=== PATIENT | female | born 1960 | race Caucasian/White ===

== ENCOUNTER → 2018-07-06 | Outpatient (CLI) | payer OTHER, MEDICAID ==
[2018-07-06 19:07] LABS: BASO % 0.5 % (0.0-1.0); EOS # 0.1 10^3/uL (0.0-0.50); EOS % 0.9 % (0.0-3.0); HEMATOCRIT 40.6 % (36.0-47.0); IMMATURE GRANULOCYTE % 0.2 % (0-3.0); LYMPH % 35.5 % (24.0-44.0); MEAN CORPUSCULAR HEMOGLOBIN 27.8 pg (27.0-33.0); MEAN CORPUSCULAR VOLUME 86.8 fl (80.0-96.0); MONO # 0.6 10^3/uL (0.0-0.8); MONO % 10.6 % (0.0-5.0); NEUTROPHILS % 52.3 % (36.0-66.0); PLATELET COUNT, AUTOMATED 327 10^3/uL (150-450); RED BLOOD COUNT 4.68 10^6/uL (4.00-5.40); RED CELL DISTRIBUTION WIDTH 14.8 % (11.5-14.5); WHITE BLOOD COUNT 5.8 10^3/uL (4.0-10.0)
[2018-07-06 19:18] LABS: INR 0.92; PROTHROMBIN TIME 12.5 SECONDS (12.1-14.4)
[2018-07-06 19:19] LABS: PARTIAL THROMBOPLASTIN TIME 29.6 SECONDS (25.4-37.6)
[2018-07-06 19:24] LABS: ALBUMIN/GLOBULIN RATIO 1.21 (1.00-1.93); ALKALINE PHOSPHATASE 223 U/L (45-117); ALT/SGPT 45 U/L (12-78); ANION GAP 8 MEQ/L (8-16); AST/SGOT 46 U/L (7-37); BILIRUBIN,TOTAL 0.4 MG/DL (0.2-1.0); BLOOD UREA NITROGEN 12 MG/DL (7-18); CALCIUM LEVEL 9.2 MG/DL (8.5-10.1); CARBON DIOXIDE LEVEL 26 MEQ/L (21-32); CHLORIDE LEVEL 105 MEQ/L (98-107); CREATININE FOR GFR 0.55 MG/DL (0.55-1.30); GLOMERULAR FILTRATION RATE > 60.0 (>51); GLUCOSE, FASTING 113 MG/DL (70-100); POTASSIUM SERUM 4.1 MEQ/L (3.5-5.1); RHEUMATOID FACTOR QUANT < 10.0 IU/ML (<15.0); SODIUM LEVEL 139 MEQ/L (136-145); TOTAL PROTEIN 7.3 GM/DL (6.4-8.2)
[2018-07-11 10:13] LABS: ANCA-ATYPICAL <1:20 titer (Neg:<1:20); ASPERGILLUS FUMIGATUS AB Negative (Negative); AUREOBASIDIUM PULLULANS Negative (Negative); CYTOPLASMIC NEUTROP AB ANCA-C <1:20 titer (Neg:<1:20); MICROPOLYSPORA FAENI AB Negative (Negative); PERINUCLEAR AB ANCA-P <1:20 titer (Neg:<1:20); PIGEON SERUM AB Negative (Negative); THERMOACTINOMYCES SACCHARI Negative (Negative); THERMOACTINOMYCES VULGARIS Negative (Negative)
[2018-07-12 14:15] LABS: ASPERGILLUS GALACTOMANNAN AG 0.03 Index (0.00-0.49); QUANTIFERON GOLD TB Negative (Negative); TB Test (QFT) Antigen 0.71 IU/mL (.); TB Test (QFT) Mitogen 6.02 IU/mL (.); TB Test (QFT) Nil 0.51 IU/mL (.)
== END ==
LOC: M SMT 10:29
DX: R91.8 Other nonspecific abnormal finding of lung field (principal)
CPT/HCPCS: 80053

== ENCOUNTER 2018-07-16 07:23 | Day surgery (SDC) | payer MEDICARE, MEDICAID ==
[~2018-07-16 07:23] MED LIST: LIDOCAINE 1% MDV 20ML VIAL SQ
[2018-07-16] MEDS: LR 1,000 ML IV (07:45)
[2018-07-16] MEDS ORDERED: EPINEPHrine 1MG/10ML SYRINGE 1.5IN As Ordered (08:55)
[2018-07-16] MEDS ORDERED: LIDOCAINE VISCOUS 2% SOLN 15ML UDC As Ordered (08:55)
[2018-07-16] MEDS ORDERED: THROMBIN SOLN 5,000 UNITS VIAL As Ordered (08:55)
[2018-07-16] MEDS ORDERED: LIDOCAINE 1% SDV INJ 30 ML VIAL As Ordered (08:55)
[2018-07-16] MEDS ORDERED: MIDAZOLAM INJ 2 MG/2 ML VIAL (J2250) As Ordered (08:57)
[2018-07-16] MEDS ORDERED: LIDOCAINE 2% INJ 100 MG/5 ML SYRINGE As Ordered ×2 (08:58→09:00)
[2018-07-16] MEDS ORDERED: PROPOFOL 200 MG/20 ML VIAL As Ordered (08:58)
[2018-07-16] MEDS ORDERED: ROCURONIUM BROMIDE 50 MG/5 ML VIAL As Ordered (08:58)
[2018-07-16] MEDS ORDERED: fentaNYL 100 MCG/2 ML INJECTION (J3010) As Ordered ×2 (08:58→09:36)
[2018-07-16] MEDS: CETACAINE SPRAY 5GM As Ordered (09:35)
[2018-07-16] MEDS ORDERED: ONDANSETRON 4MG/2ML VIAL (J2405) As Ordered (09:42)
[2018-07-16] MEDS ORDERED: dexameTHASONE 4 MG/ML 1ML VIAL (J1100) As Ordered (09:42)
[2018-07-16] MEDS ORDERED: ESMOLOL INJ 100MG/10ML VIAL As Ordered (10:24)
[2018-07-16] MEDS ORDERED: GLYCOPYRROLATE INJ 0.2 MG/ML 2 ML VIAL As Ordered (10:26)
[2018-07-16] MEDS ORDERED: NEOSTIGMINE 10 MG/10 ML VIAL (J2710) As Ordered (10:26)
[2018-07-16] MEDS ORDERED: PERCOCET 5MG/325MG TAB PO (11:00)
[2018-07-16] MEDS ORDERED: LR 1,000 ML IV (11:00)
[2018-07-16] MEDS ORDERED: HYDROMORPHONE HCL 0.5 MG/ 0.5 ML SYRINGE (J1170 PER 1) IV (11:00)
[2018-07-16] MEDS ORDERED: ONDANSETRON 4MG/2ML VIAL (J2405) IV (11:00)
[2018-07-16] MEDS ORDERED: fentaNYL 100 MCG/2 ML INJECTION (J3010) IV (11:00)
[2018-07-16 11:18] LABS: APPEARANCE TURBID (CLEAR); COLOR COLORLESS (COLORLESS); SOURCE LEFT LOWER LOBE
[2018-07-16 11:21] LABS: BAL DIFF IF INDICATED? YES (NO); BAL WBC 119.988 CELLS/uL (0-10); DILUTION FACTOR 9; WBC BAL COUNTED 12
[2018-07-16 11:22] LABS: APPEARANCE TURBID (CLEAR); BAL WBC 89.991 CELLS/uL (0-10); COLOR COLORLESS (COLORLESS); DILUTION FACTOR 9; SOURCE RIGHT LOWER LOBE; WBC BAL COUNTED 9
[2018-07-16 11:23] LABS: BAL DIFF IF INDICATED? YES (NO)
[2018-07-16 12:24] LABS: MONOCYTES/MACROPHAGES, BAL 8 %
[2018-07-16 12:26] LABS: MONOCYTES/MACROPHAGES, BAL 5 %
[2018-07-16 14:19] LABS: CC BAL DIFF EXAM CYTOCENTRIFUGE
== END 2018-07-16 12:15 | disposition home or self-care (01) ==
LOC: M SDC 07:23
DX: R59.0 Localized enlarged lymph nodes (principal); R91.8 Other nonspecific abnormal finding of lung field; I10 Essential (primary) hypertension; R00.0 Tachycardia, unspecified; E78.5 Hyperlipidemia, unspecified; M19.90 Unspecified osteoarthritis, unspecified site; K21.9 Gastro-esophageal reflux disease without esophagitis; G43.909 Migraine, unspecified, not intractable, without status migrainosus; M54.9 Dorsalgia, unspecified; Z88.0 Allergy status to penicillin; Z88.1 Allergy status to other antibiotic agents; Z88.5 Allergy status to narcotic agent; Z79.899 Other long term (current) drug therapy; Z79.82 Long term (current) use of aspirin; Z85.3 Personal history of malignant neoplasm of breast; Z92.3 Personal history of irradiation; Z90.710 Acquired absence of both cervix and uterus; Z87.891 Personal history of nicotine dependence
CPT/HCPCS: 31624

== ENCOUNTER → 2018-07-31 | Outpatient (CLI) | payer MEDICARE, MEDICAID | LOC: M PLARAD 13:19 | DX: C78.01 Secondary malignant neoplasm of right lung (principal); C78.02 Secondary malignant neoplasm of left lung | CPT/HCPCS: 78815 ==

== ENCOUNTER → 2018-08-13 | Outpatient (CLI) | payer MEDICARE, MEDICAID ==
[~2018-08-13] MED LIST changes: -LIDOCAINE 1% MDV 20ML VIAL SQ; +PROHANCE 279.3MG/ML 15ML VIAL (A9576) As Ordered
== END ==
LOC: M RAD 17:09
DX: R51 Headache (principal); R47.9 Unspecified speech disturbances; E05.90 Thyrotoxicosis, unspecified without thyrotoxic crisis or storm; Z85.3 Personal history of malignant neoplasm of breast
CPT/HCPCS: A9576

== ENCOUNTER → 2018-08-17 | Outpatient (CLI) | payer MEDICARE, MEDICAID | LOC: M RAD 08:08 | DX: R22.42 Localized swelling, mass and lump, left lower limb (principal) | CPT/HCPCS: 93971 ==

== ENCOUNTER → 2018-11-13 | Outpatient (CLI) | payer MEDICARE, MEDICAID ==
[~2018-11-13] MED LIST changes: +ASPI81TA21 PO; +ATOR1TAB21 PO; +CALC600T60 PO; +CLON-412 PO; +COLA100C5 PO; +CYCL10TA PO; +GABA800T4 PO; +HYDR-4514 PO; +HYDR50TA70 PO; +IBRA125C PO; +LETR2.5T2 PO; +LORA-243 PO; +MIRT45TA4 PO; +NEXI20CA PO; -PROHANCE 279.3MG/ML 15ML VIAL (A9576) As Ordered; +SUMA100T2 PO; +TOPA50TA8 PO; +VALA1TAB2 PO; +VITA200048 PO; +XANA0.5T PO
--- NOTE | 2018-11-13 20:34 | REP ---
Whole body PET CT scan for breast cancer restaging: Comparison is the PET scan dated 07/31/2018. Whole-body scanning is performed from skull base to the upper thighs. Neck: There is borderline hypermetabolic uptake in the right supraclavicular node with a maximal standard uptake value today of 3.5. The maximal standard uptake value previously was 9.2. There are no other hypermetabolic foci. There is artifactual uptake in the parotid glands. Chest: The multiple lung nodules identified on the CT accompanying the prior PET scan are no longer identified except for a single persisting nodule in the medial basilar segment of the right lower lobe posterior sulcus, unchanged in size. There is non hypermetabolic uptake in this nodule with a standard uptake value of 1.8. Previously the standard uptake value in this nodule was 2.9. There is hypermetabolic uptake in an anterior mediastinal node with a standard uptake value of 10.3. Previously the uptake was 16.9. There is hypermetabolic uptake in the precarinal mediastinal node with a standard uptake value of 10.2, previously 16.8. There is hypermetabolic uptake in a subcarinal node with a standard uptake value of 9.6, previously 8.8. There is minimal hypermetabolic uptake in a left hilar node l node with a standard uptake value of 2.9, previously 2.7. There is minimal hypermetabolic uptake in a right hilar node with a standard uptake value of 2.7, previously 5.6. Abdomen, pelvis and upper thighs: There are no hypermetabolic foci. This is unchanged. Impression: There is a single persisting lung nodule in the deep posterior sulcus of the right lower lobe with non hypermetabolic uptake. The other lung nodules identified on the previous study are no longer identified on the study today. The uptake noted previously in the left nodes in the right supraclavicular area, mediastinum, and right and left pennie. In general have decreased in value. Uptake in a subcarinal node today is slightly greater than previously. The study is performed with 7.95 mCi of F 18 FDG. Electronically Signed by Kashif Sexton MD 11/13/2018 08:26 P
== END ==
LOC: M PLARAD 08:58
PROVIDERS: ATTEND Internal Medicine Hematology & Oncology
DX: C50.912 Malignant neoplasm of unspecified site of left female breast (principal); C78.01 Secondary malignant neoplasm of right lung
CPT/HCPCS: 78815; A9552

== ENCOUNTER → 2019-04-02 | Outpatient (CLI) | payer MEDICARE, MEDICAID ==
[~2019-04-02] MED LIST changes: +GASTROGRAFIN SOLUTION 30ML (Q9963) As Ordered ONE; +IBRA100C PO; +ISOVUE-370 76% 100ML VIAL (Q9967) As Ordered ONE; -VALA1TAB2 PO; +VALA1TAB64 PO
--- NOTE | 2019-04-02 19:49 | REP ---
REASON FOR EXAM: HISTORY OF BREAST CARCINOMA: There are no priors for comparison. CT scan obtained as part of a PET CT is not an exact comparison to today's standard contrast enhanced abdominal and pelvic CT performed not only after the administration of intravenous contrast but performed after the administration of oral bowel preparatory contrast as well. Those images, however, were reviewed. The patient is status-post cholecystectomy. There is mild intrahepatic ductal dilatation likely secondary to postcholecystectomy state. The patient is status-post splenectomy. There are multiple splenules status quo. The pancreas, adrenal glands and kidneys are within normal limits. The abdominal aorta and paraaortic regions are within normal limits. The bowel loops and their mesenteries are within normal limits. There is no free fluid or free air. There is no intraabdominal mass or adenopathy. CT PELVIS: The bowel loops and their mesenteries are within normal limits. There is no free fluid or free air. There is no mass or adenopathy. Bone window technique throughout the exam shows the osseous structures to be within normal limits. Multiple old healed left sided rib fractures are noted. These are unchanged compared to the prior CT. IMPRESSION:There is no evidence of acute intraabdominal or intrapelvic disease. CT findings as described above. Electronically Signed by Augustin Cornejo DO 04/03/2019 03:36 P
--- NOTE | 2019-04-03 07:16 | REP ---
REASON: History of breast carcinoma. COMPARISON: 06/28/[address] obtained at an outside institution. The CT component of the PET/CT obtained on 11/13/2018 was also reviewed. CONTRAST: 100 mL Isovue 370. The prior outside CT of 06/28/2018 was a low dose screening CT examination of the lungs. There are no contrast enhanced chest CTs for comparison. There is mediastinal adenopathy having a similar appearance compared to the prior CT scans. There is mild right hilar adenopathy. This cannot be compared with the prior exams since they are without intravenous contrast. The largest node has a short axis dimension of 1.2 cm. There are no pleural or pericardial effusions. The imaged osseous structures are within normal limits. Old healed left-sided rib fractures are noted status quo. Evaluation of the lung fuller show two ground-glass nodules. One in the inferior right upper lobe abutting the fissure to the right middle lobe and measuring 1 cm with a 6 mm solid nodular component associated with this. The other just superior to the aforementioned in the right upper lobe having an overall measurement of 1.3 cm and a 6 mm sized solid nodular component. These are difficult to compare to the prior exams due to the protocol utilized in obtaining those prior exams. Overall, I would say they are stable compared to the 11/13/2018 exam but are new compared to the 06/28/2018 exam. In the right lower lobe medial basilar segment, there is a pleural-based density which measures 1.7 cm. This is unchanged when compared to both prior exams. Small cavitary nodules seen previously in the left lower lobe are stable. There are numerable tiny 2 and 3 mm sized nodules, all of which have decreased in size compared to 06/28/2018 but probably stable from 11/13/2018, although difficult for an exact comparison. No definite new abnormal nodules, masses, or opacities have developed. IMPRESSION: 1. Essentially unchanged adenopathy as described above. 2. Improved or stable lung fuller findings with limitations as described above. Continued surveillance is recommended. Electronically Signed by Augustin Cornejo DO 04/03/2019 03:36 P
== END ==
LOC: M RAD 15:19
PROVIDERS: ATTEND Internal Medicine Hematology & Oncology
DX: C50.919 Malignant neoplasm of unspecified site of unspecified female breast (principal); R91.8 Other nonspecific abnormal finding of lung field; R59.0 Localized enlarged lymph nodes
CPT/HCPCS: 71260; 74177; Q9963; Q9967

== ENCOUNTER → 2019-07-08 | Outpatient (CLI) | payer MEDICARE, MEDICAID ==
[~2019-07-08] MED LIST changes: +VALA1TAB2 PO; -VALA1TAB64 PO
--- NOTE | 2019-07-08 10:58 | REP ---
CT of the chest with IV contrast: Comparisons are the chest CT of 04/02/2019 and whole body PET scan of 11/13/2018. On the comparison chest CT there were two ground-glass densities with each with a solid nodular component inferiorly in the right upper lobe. These ground-glass densities with there are nodular components have resolved and are no longer present on the current study. There is an 8 mm pleural-based nodule in the medial basilar segment of the right lower lobe on image 73. This measured 1.7 cm previously. There is a small cavitary nodule in the left lower lobe on image 70 - 71, unchanged. The numerous 2/3 mm lung minute nodules identified previously are no longer appreciated. There is an anterior mediastinal node, not significantly changed in size. There is a mediastinal azygos node, not significantly changed in size. There are subcarinal nodes, not significantly changed in size. There is a right hilar node, not significantly changed in size. There are no new lung nodules or may there are no infiltrates or pleural effusions. There are no new mediastinal or hilar lymph nodes. The there is upper abdomen there is a cholecystectomy. There is mild intrahepatic biliary tree to dilatation, likely secondary to the cholecystectomy. There is no adrenal mass. The the patient has a splenectomy. There are stable splenules, unchanged. Impression: The previous right upper lobe ground-glass densities containing solid nodule components are no longer present. The small cavitary left lower lobe nodule is unchanged. The pleural-based nodule in the medial basilar segment right lower lobe has decreased size. The previous numerous small lung nodules are no longer appreciated. The mediastinal and right hilar lymph nodes are not significantly changed. There are no new lung nodules or masses. No infiltrates or effusions. Electronically Signed by Kashif Sexton MD 07/08/2019 10:50 A
--- NOTE | 2019-07-08 12:30 | REP ---
CT of the abdomen and pelvis with IV and bowel contrast: The study is performed contiguous with the chest CT this same date. Imaging is initially performed during the arterial phase of enhancement and is repeated during the delayed equilibrium phase of enhancement. There is a cholecystectomy. There is mild intrahepatic biliary duct dilatation, likely a consequence of the cholecystectomy. The hepatic parenchyma is homogeneous. The pancreas is unremarkable. There is a splenectomy. There are left upper quadrant splenules, unchanged. The adrenals are unremarkable. There is a focal cortical scar in the left kidney posteriorly. This is unchanged. The kidneys are otherwise unremarkable. The abdominal aorta is unremarkable. There is no retroperitoneal adenopathy or mass. There is no bowel distension or wall thickening. The mesentery is unremarkable. Pelvis: There is a hysterectomy. Vaginal cuff and adnexa are unremarkable. The bladder is unremarkable. The pelvic bowel loops are unremarkable. There is no ascites or adenopathy. There are no lytic, blastic or destructive skeletal changes. Impression: There is no evidence of adenopathy or metastatic disease. There is a cholecystectomy, appendectomy and hysterectomy. There is a splenectomy with left upper quadrant splenules, unchanged. There is a cortical scar posteriorly in the left kidney. Electronically Signed by Kashif Sexton MD 07/08/2019 12:22 P
== END ==
LOC: M RAD 08:09
PROVIDERS: ATTEND Internal Medicine Hematology & Oncology
DX: C50.119 Malignant neoplasm of central portion of unspecified female breast (principal)
CPT/HCPCS: 71260; 74177; Q9963; Q9967

== ENCOUNTER → 2019-12-09 | Outpatient (CLI) | payer MEDICARE ==
[~2019-12-09] MED LIST changes: -VALA1TAB2 PO; +VALA1TAB5 PO
--- NOTE | 2019-12-10 08:56 | REP ---
CT chest with IV contrast: History: Restaging breast carcinoma. Comparison is made with prior chest CT studies from July 08, 2019, April 02, 2019, and June 28, 2018. Comparison PET/CT study November 13, 2018. CT contrast dose: 100 mL of intravenous Isovue [address] findings: There is a lymph node in the anterior mediastinum which currently measures 14 x 17 mm in anteroposterior by right to left dimension, previously, 9 x 13 mm. There are subcarinal lymph nodes measuring 14 mm in short axis dimension, previously 12 mm. There are several right pretracheal lymph nodes which may be very slightly more prominent in size. Stable right hilar lymph node is seen. There are several lymph nodes in the right anterior pericardial fat which are slightly more prominent but remain small, 5 mm in short axis dimension. There are multiple pulmonary nodules. There are multiple nodular foci of pleural thickening bilaterally as well. Many of these are stable including a previously noted pleural based nodule in the right lower lobe posterior lung sulcus. However, some of these nodules have enlarged. There is a mixed density 11 mm nodule in the left lower lobe on page 66 of 97 in series 204 of today's study. This is larger than previously. There is a 16 mm similar mixed density nodule in the right lower lobe on page 54 which is larger. These nodules consist of small airspace bullae with nodular mural changes which are more prominent than previously. There is no definitely new nodule. No bony abnormality is seen. No infiltrate or mass is seen. No pleural or pericardial effusion is noted. Impression: There are subtle changes which may reflect early progression in mediastinal lymph nodes and several mixed density nonsolid pulmonary nodules as above. Electronically Signed by Buck Li MD 12/10/2019 12:51 P
--- NOTE | 2019-12-10 08:56 | REP ---
CT ABDOMEN AND PELVIS WITH IV AND ORAL CONTRAST: HISTORY: Restaging breast carcinoma. Comparison CT study July 08, 2019. CT CONTRAST DOSE: 100 mL of intravenous Isovue [address] FINDINGS: Preliminary digital m1 armor crewman radiograph demonstrates an unremarkable bowel gas pattern. There are clips in the right upper quadrant post cholecystectomy. The patient is also status post prior splenectomy and there are multiple stable recurrent or residual splenules in the left upper quadrant. The largest of these measures 2.7 cm in greatest diameter. These are unchanged. There is some focal cortical scarring in the left kidney unchanged. The kidneys enhance symmetrically and are otherwise morphologically intact. There is a granulomatous calcification in the liver. No focal liver mass lesion is appreciated. No adrenal lesion is seen. There is no evidence of upper abdominal ascites. No abnormality is noted in the pancreas. Small and large intestinal bowel loops are normal in the upper abdomen and in the pelvis. Uterus is surgically absent. No adnexal abnormality or pelvic adenopathy is seen. Urinary bladder is unremarkable. No abdominal wall defect is seen. No bony destructive lesion is appreciated. IMPRESSION: Residual or recurrent splenic tissue post splenectomy again seen. Post cholecystectomy and hysterectomy. No evidence of intra-abdominal metastasis. Electronically Signed by Buck Li MD 12/10/2019 12:51 P
== END ==
LOC: M RAD 11:42
PROVIDERS: ATTEND Internal Medicine Hematology
DX: C50.919 Malignant neoplasm of unspecified site of unspecified female breast (principal); C78.00 Secondary malignant neoplasm of unspecified lung
CPT/HCPCS: 71260; 74177; Q9963; Q9967

== ENCOUNTER → 2020-01-22 | Outpatient (CLI) | payer MEDICARE, MEDICAID ==
[~2020-01-22] MED LIST changes: +CHOL4POW4 PO; +CYCL-707 PO; -CYCL10TA PO; -GASTROGRAFIN SOLUTION 30ML (Q9963) As Ordered ONE; -ISOVUE-370 76% 100ML VIAL (Q9967) As Ordered ONE; +MIRT1TAB17 PO; +VERZ150T PO
[2020-01-22 14:18] LABS: BASO # 0.1 10^3/uL (0.0-0.2); EOS # 0.2 10^3/uL (0.0-0.5); EOS % 1.6 % (0.0-3.0); HEMATOCRIT 39.4 % (36.0-47.0); HEMOGLOBIN 13.2 g/dl (12.0-15.5); LYMPH # 3.7 10^3/uL (1.5-5.0); LYMPH % 38.7 % (24.0-44.0); MEAN CORPUSCULAR HEMOGLOBIN 33.9 pg (27.0-33.0); MEAN CORPUSCULAR HGB CONC 33.5 g/dl (32.0-36.5); MEAN CORPUSCULAR VOLUME 101.3 fl (80.0-96.0); MONO # 0.8 10^3/uL (0.0-0.8); MONO % 8.7 % (0.0-5.0); NEUTROPHILS # 4.8 10^3/uL (1.5-8.5); NEUTROPHILS % 49.4 % (36.0-66.0); PLATELET COUNT, AUTOMATED 425 10^3/uL (150-450); RED BLOOD COUNT 3.89 10^6/uL (4.00-5.40); WHITE BLOOD COUNT 9.6 10^3/uL (4.0-10.0)
[2020-01-22 14:48] LABS: ALBUMIN 3.9 GM/DL (3.2-5.2); BILIRUBIN,TOTAL 0.5 MG/DL (0.2-1.0); CALCIUM LEVEL 9.7 MG/DL (8.5-10.1); CREATININE FOR GFR 1.06 MG/DL (0.55-1.30); GLOMERULAR FILTRATION RATE 56.7 (>51); POTASSIUM SERUM 4.2 MEQ/L (3.5-5.1); TOTAL PROTEIN 7.6 GM/DL (6.4-8.2)
== END ==
LOC: M LAB 13:21
PROVIDERS: ATTEND Internal Medicine Medical Oncology
DX: C50.919 Malignant neoplasm of unspecified site of unspecified female breast (principal)

== ENCOUNTER 2020-09-09 12:05 | Inpatient (IN) | payer MEDICARE, MEDICAID ==
[~2020-09-09] VITALS: Ht 165.1 cm; Wt 76.3 kg
[~2020-09-09 12:05] MED LIST changes: +LEVE250T5 PO; +METH10TA PO
--- NOTE | 2020-09-09 12:47 | REP ---
INDICATION: altered. COMPARISON: None. TECHNIQUE: Helical scanning is acquired. 5 mm axial images were reformatted. Coronal MPR images were generated. FINDINGS: Bone window settings demonstrate an intact bony calvarium. There is no evidence of skull fracture or incidental bony calvarial lesion. There is an air-fluid level in the left maxillary sinus. The visualized paranasal sinuses appear otherwise clear. No intraorbital abnormality is seen. On soft tissue window setting images; the lateral, third, and fourth ventricles are normal in size and position. Kahn-white differentiation pattern is normal above and below the tentorium. There are is no evidence of intracranial hemorrhage. No mass, edema, infarction, or midline shift is seen. No extra-axial fluid collection is appreciated. IMPRESSION: Air-fluid level in the left maxillary sinus. Otherwise negative head CT. No acute intracranial abnormality.. <Electronically signed by Wyatt Li > 09/09/20 [id number]
[2020-09-09 13:03] LABS: BASO # 0.1 10^3/uL (0.0-0.2); BASO % 0.4 % (0.0-1.0); EOS # 0.1 10^3/uL (0.0-0.5); EOS % 0.4 % (0.0-3.0); HEMATOCRIT 36.7 % (36.0-47.0); LYMPH # 3.3 10^3/uL (1.5-5.0); LYMPH % 23.8 % (24.0-44.0); MEAN CORPUSCULAR HEMOGLOBIN 31.3 pg (27.0-33.0); MEAN CORPUSCULAR HGB CONC 32.7 g/dl (32.0-36.5); MEAN CORPUSCULAR VOLUME 95.8 fl (80.0-96.0); MONO # 1.3 10^3/uL (0.0-0.8); MONO % 9.5 % (0.0-5.0); NEUTROPHILS # 8.9 10^3/uL (1.5-8.5); NEUTROPHILS % 65.3 % (36.0-66.0); PLATELET COUNT, AUTOMATED 322 10^3/uL (150-450); RED BLOOD COUNT 3.83 10^6/uL (4.00-5.40); WHITE BLOOD COUNT 13.6 10^3/uL (4.0-10.0)
--- NOTE | 2020-09-09 13:09 | REP ---
INDICATION: CHEST PAIN. COMPARISON: Portable chest dated 07/16/2018. TECHNIQUE: Single AP view performed portably with the patient sitting. FINDINGS: The lung fuller are clear. Cardiac size is normal. The pennie, mediastinum and skeletal structures are unremarkable. IMPRESSION: Essentially negative portable chest <Electronically signed by Kashif Sexton > 09/09/20 [id number]
[2020-09-09 13:34] LABS: ALBUMIN 3.8 GM/DL (3.2-5.2); ALT/SGPT 24 U/L (12-78); BILIRUBIN,DIRECT 0.2 MG/DL (0.0-0.2); BILIRUBIN,TOTAL 0.7 MG/DL (0.2-1.0); BLOOD UREA NITROGEN 31 MG/DL (7-18); CARBON DIOXIDE LEVEL 28 MEQ/L (21-32); CHLORIDE LEVEL 105 MEQ/L (98-107); CK-MB VALUE MASS 6.7 NG/ML (<3.6); CPK CREATINE PHOSPHOKINASE 181 U/L (26-192); CREATININE FOR GFR 0.96 MG/DL (0.55-1.30); GLOMERULAR FILTRATION RATE > 60.0 (>51); GLUCOSE, FASTING 122 MG/DL (70-100); LIPASE 79 U/L (73-393); NT-PRO BNP 447 PG/ML (<125); SODIUM LEVEL 140 MEQ/L (136-145); TOTAL PROTEIN 7.3 GM/DL (6.4-8.2); TROPONIN I 0.02 NG/ML (< 0.10)
[2020-09-09] MEDS ORDERED: ACETAMINOPHEN 325 MG TAB PO ONE (15:00)
[2020-09-09] MEDS ORDERED: NS 1,000 ML IV ONE (15:00)
[2020-09-09] MEDS ORDERED: CHOLESTYRAMINE 4 GM PWD PKT PO PRN (18:00)
[2020-09-09] MEDS ORDERED: SUMAtriptan SUCCINATE 25 MG TAB PO PRN (18:00)
[2020-09-09] MEDS ORDERED: LEVE500T5 PO (18:02)
[2020-09-09] MEDS ORDERED: D31000TA2 PO (18:02)
--- NOTE | 2020-09-09 18:13 | HPEPDOC ---
General Date of Admission 09/09/20 Date of Service: Sep 09, 2020 Chief Complaint The patient is a 59-year-old female admitted with a reason for visit of Chest Pain. 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 According to caregiver patient was confused for past 3-4 days, she has been having increased forgetfulness and has difficulties to express her thoughts. Patient's caregiver extremely poor historian and patient cannot provide details because of altered mental status. In ER patient was found to have fever of 100.4, tachycardia, leukocytosis of 13.6, lactic acidosis with a normal limit. CT scan negative for stroke or acute bleed. Of note, in 2018 patient was diagnosed with recurrent breast cancer with metastasis to the lungs, patient received multiple courses of chemotherapy. The patient underwent CT scans in December 2019, with CT scan November showing progression of disease modestly with enlarging mediastinal lymph nodes. Currently she is on Faslodex and Verzenio. Home Medications Scheduled Abemaciclib (Verzenio) 150 Mg Tablet, 150 MG PO BID for Metastatic breast cancer Take 150 mg po B.I.D. to control breast cancer Cholecalciferol (Vitamin D3) (Vitamin D3) 1,000 Unit Tablet, 2,000 UNITS PO DAILY, (Reported) Clonidine HCl (Clonidine HCl) 0.1 Mg Tab, 0.1 MG PO BID, (Reported) Cyclobenzaprine HCl (Cyclobenzaprine HCl) 10 Mg Tab, 10 MG PO TID, (Reported) Esomeprazole Magnesium (Nexium) 20 Mg Cap, 20 MG PO DAILY, (Reported) Gabapentin (Gabapentin) 800 Mg Tab, 800 MG PO TID, (Reported) Hydroxyzine HCl (Hydroxyzine HCl) 50 Mg Tab, 50 MG PO TID, (Reported) Loratadine (Loratadine) 10 Mg Tab, 10 MG PO DAILY, (Reported) Methimazole (Methimazole) 10 Mg Tablet, 15 TAB PO 2XW, (Reported) WED/FRI Mirtazapine (Mirtazapine) 45 Mg Tab.rapdis, 45 MG PO QHS, (Reported) Topiramate (Topamax) 50 Mg Tab, 50 MG PO BID, (Reported) levETIRAcetam (levETIRAcetam) 500 Mg Tablet, 500 MG PO QID, (Reported) Scheduled PRN Cholestyramine (with Sugar) (Cholestyramine Packet) 4 Gm Powd.pack, 4 GM PO QIDP PRN for DIARRHEA Take 4 gram po q 6 hours prn diarrhea Hydrocodone/Acetaminophen (Hydrocodone-Acetamin 7.5-325) 1 Tab Tab, 1 TAB PO QID PRN for PAIN, (Reported) Sumatriptan Succinate (Sumatriptan Succinate) 100 Mg Tab, 100 MG PO ASDIRECTED PRN for HEADACHE, (Reported) may repeat in 2 hours; do not exceed 200 mg in 24 hours Allergies Coded Allergies: Penicillins (Verified Allergy, Intermediate, Hives, 12/26/18) Sulfa (Sulfonamide Antibiotics) (Verified Adverse Reaction, Mild, Vomiting, 12/26/18) tramadol (Verified Adverse Reaction, Mild, Vomiting, 12/26/18) Past Medical History Medical History irregular heart beat GERD Migraines Metastatic breast cancer Surgical History Appendectomy Cholecystectomy Hysterectomy splenectomy Family History Unable to obtain Social History * Smoker: current smoker Alcohol: Denies Drugs: denies A-FIB/CHADSVASC A-FIB History Current/History of A-Fib/PAF?: No Current PO Anticoag Therapy: No Review of Systems Constitutional: Reports: Chills, Fever Eyes: Denies: Pain ENT: Denies: Head Aches Skin: Denies: Rash Pulmonary: Denies: Dyspnea Cardiovascular: Denies: Chest Pain Gastrointestinal: Denies: Nausea Genitourinary: Denies: Dysuria Hematologic: Denies: Bruising Endocrine: Denies: Polydipsia, Polyphagia Musculoskeletal: Denies: Neck Pain Neurological: Reports: Confusion Psych: Reports: Other Psych (unable to obtain) Physical Examination General Exam: Positive: Moderate Distress Eye Exam: Positive: PERRLA ENT Exam: Positive: Atraumatic Neck Exam: Positive: Supple; Negative: JVD Chest Exam: Positive: Clear to auscultation Heart Exam: Positive: Tachycardic Telemetry: Positive: Sinus Abdomen Exam: Positive: Normal bowel sounds Extremity Exam: Positive: Clubbing; Negative: Cyanosis Skin Exam: Negative: Breakdown Neuro Exam: Positive: Reflexes 2+ Psych Exam: Negative: Memory Intact, Oriented x 3 Vital Signs Vital Signs Date Time Temp Pulse Resp B/P (MAP) Pulse Ox O2 Delivery O2 Flow Rate FiO2 09/09/20 17:05 99.8 113 96 09/09/20 16:45 165/88 (113) 09/09/20 12:19 20 Room Air Laboratory Data Labs 24H Laboratory Tests 2 09/09/20 12:12: Immature Granulocyte % (Auto) 0.6, Neutrophils (%) (Auto) 65.3, Lymphocytes (%) (Auto) 23.8L, Monocytes (%) (Auto) 9.5H, Eosinophils (%) (Auto) 0.4, Basophils (%) (Auto) 0.4, Neutrophils # (Auto) 8.9H, Lymphocytes # (Auto) 3.3, Monocytes # (Auto) 1.3H, Eosinophils # (Auto) 0.1, Basophils # (Auto) 0.1, Nucleated Red Blood Cells % (auto) 0.0, Anion Gap 7L, Glomerular Filtration Rate > 60.0, Calcium Level 9.0, Total Bilirubin 0.7, Direct Bilirubin 0.2, Aspartate Amino Transf (AST/SGOT) 22, Alanine Aminotransferase (ALT/SGPT) 24, Alkaline Phosphatase 125H, Ammonia 14, Total Creatine Kinase 181, Creatine Kinase MB 6.7H, Creatine Kinase MB Relative Index 3.70, Troponin I 0.02, IM-Sca-J-Type Natriuretic Peptide 447H, Total Protein 7.3, Albumin 3.8, Albumin/Globulin Ratio 1.1L, Lipase 79 09/09/20 14:34: Urine Color YELLOW, Urine Appearance CLEAR, Urine pH 5.0, Urine Specific [place] 1.027, Urine Protein 1+H, Urine Glucose (UA) NEGATIVE, Urine Ketones TRACEH, Urine Blood 2+H, Urine Nitrite NEGATIVE, Urine Bilirubin NEGATIVE, Urine Urobilinogen 0.2, Urine Leukocyte Esterase NEGATIVE, Urine WBC (Auto) 1, Urine RBC (Auto) 3, Urine Hyaline Casts (Auto) 3, Urine Bacteria (Auto) NEGATIVE, Urine Squamous Epithelial Cells 0, Urine Sperm (Auto) 09/09/20 14:52: Lactic Acid Level 0.9, Coronavirus (COVID-19)(PCR) NEGATIVE CBC/BMP Laboratory Tests 09/09/20 12:12 Microbiology Microbiology 09/09/20 Blood Culture, Received Pending 09/09/20 Blood Culture, Received Pending Assessment/Plan Patient is 59 years old male with past mental history of Metastatic adenocarcin [place] OF breast with metastatic disease to lung and lymph nodes, GERD, migraines presented hospital with altered mental status. According to caregiver patient was confused for past 3-4 days, she has been having increased forgetfulness and has difficulties to express her thoughts. Patient's caregiver extremely poor historian and patient cannot provide details because of altered mental status. In ER patient was found to have fever of 100.4, tachycardia, leukocytosis of 13.6, lactic acidosis with a normal limit. CT scan negative for stroke or acute bleed. Of note, in 2018 patient was diagnosed with recurrent breast cancer with metastasis to the lungs, patient received multiple courses of chemotherapy. The patient underwent CT scans in December 2019, with CT scan November showing progression of disease modestly with enlarging mediastinal lymph nodes. Currently she is on Faslodex and Verzenio. Problems (1) Sepsis Status: Acute Problem Text: Patient developed leukocytosis, fever, tachycardia Unknown source of infection patient is on immunotherapy and she is immunocompromised Started empirically vancomycin IV, cefepime IV Gentle IV fluid, BNP slightly elevated Blood culture, procalcitonin (2) Metabolic encephalopathy Status: Acute Problem Text: Metabolic encephalopathy Unknown etiology Differential diagnosis includes metastases, sepsis, stroke CT head negative MRI, MRA (3) Recurrent breast cancer Status: Acute Problem Text: Follow-up with oncologist in the outpatient settings Plan / VTE VTE Prophylaxis Ordered?: Yes MALENA WEINER DO Sep 09, 2020 18:13
[2020-09-09] MEDS: NS 1,000 ML IV SCH (18:30)
[2020-09-09 18:51] LABS: THYROID STIMULATING HORMONE 0.374 uIU/ML (0.358-3.740)
[2020-09-09] MEDS ORDERED: KCL 10MEQ/100ML SWI (KRUN) 10 MEQ in IV 1 EA IV ONE (19:00)
[2020-09-09 19:15] VITALS: BP 162/90
[2020-09-09] MEDS ORDERED: POTASSIUM CHLORIDE 10 MEQ SR TABLET PO ONE (20:00)
[2020-09-09] MEDS: CEFEPIME HCL 2 GM in D5W MINI-BAG PLUS 50 ML IV SCH (20:55)
[2020-09-09] MEDS: levETIRAcetam 250MG TABLET (KEPPRA) PO SCH (20:55)
[2020-09-09] MEDS: CYCLOBENZAPRINE 10MG TABLET PO SCH (20:55)
[2020-09-09] MEDS: cloNIDine 0.1 MG TAB PO SCH (20:56)
--- NOTE | 2020-09-09 20:59 | ECGEPIP ---
[facility] - ED Test Date: 2020-09-09 Pat Name: BURKE LOPEZ Department: Room: - Gender: Female Client Liaison: Basil : 1960 Requested By: Lauren Magdaleno Order Number: [id number] Reading MD: Lauren Magdaleno Measurements Intervals [place] Rate: 110 P: 75 IA: 135 QRS: -34 QRSD: 95 T: 57 QT: 362 QTc: 491 Interpretive Statements SINUS TACHYCARDIA WITH OCCASIONAL VENTRICULAR PREMATURE COMPLEXES MARKED LEFT AXIS DEVIATION LEFT VENTRICULAR HYPERTROPHY AND ST-T CHANGE PROLONGED QTC NO PRIOR Electronically Signed on 09-09-2020 20:59:08 EST by Lauren Magdaleno
[2020-09-09] MEDS ORDERED: VANCOMYCIN HCL 500 MG in D5W MINI-BAG PLUS 100 ML IV ONE (22:00)
[2020-09-09] MEDS: TOPIRAMATE (TopAMAX) 25 MG TAB PO SCH (22:53)
[2020-09-09] MEDS: VANCOMYCIN HCL 1,000 MG, VIAL MATE ADAPTER 1 EACH in D5W 250 ML IV SCH (22:54)
[2020-09-10] VITALS: BP 149/83
[2020-09-10 04:00] VITALS: BP 139/72
[2020-09-10] MEDS: CEFEPIME HCL 2 GM in D5W MINI-BAG PLUS 50 ML IV SCH ×2 (05:06→13:28)
[2020-09-10] MEDS: NS 1,000 ML IV SCH ×2 (05:06→13:28)
[2020-09-10 06:28] LABS: HEMATOCRIT 32.6 % (36.0-47.0); HEMOGLOBIN 11.2 g/dl (12.0-15.5); MEAN CORPUSCULAR HGB CONC 34.4 g/dl (32.0-36.5); MEAN CORPUSCULAR VOLUME 96.2 fl (80.0-96.0); PLATELET COUNT, AUTOMATED 284 10^3/uL (150-450); RED BLOOD COUNT 3.39 10^6/uL (4.00-5.40); WHITE BLOOD COUNT 13.1 10^3/uL (4.0-10.0)
[2020-09-10 07:03] LABS: ALT/SGPT 20 U/L (12-78); BILIRUBIN,TOTAL 0.6 MG/DL (0.2-1.0); BLOOD UREA NITROGEN 13 MG/DL (7-18); CALCIUM LEVEL 8.1 MG/DL (8.5-10.1); CARBON DIOXIDE LEVEL 26 MEQ/L (21-32); CHLORIDE LEVEL 109 MEQ/L (98-107); CREATININE FOR GFR 0.64 MG/DL (0.55-1.30); GLOMERULAR FILTRATION RATE > 60.0 (>51); GLUCOSE, FASTING 109 MG/DL (70-100); SODIUM LEVEL 140 MEQ/L (136-145); TOTAL PROTEIN 6.5 GM/DL (6.4-8.2)
[2020-09-10 08:00] VITALS: BP 139/84
[2020-09-10] MEDS: CYCLOBENZAPRINE 10MG TABLET PO SCH (08:53)
[2020-09-10 08:54] VITALS: BP 139/72
[2020-09-10] MEDS: levETIRAcetam 250MG TABLET (KEPPRA) PO SCH ×2 (08:54→13:28)
[2020-09-10] MEDS: cloNIDine 0.1 MG TAB PO SCH (08:54)
[2020-09-10] MEDS: TOPIRAMATE (TopAMAX) 25 MG TAB PO SCH (08:54)
[2020-09-10] MEDS: VANCOMYCIN HCL 1,000 MG, VIAL MATE ADAPTER 1 EACH in D5W 250 ML IV SCH (08:55)
[2020-09-10] MEDS ORDERED: POTASSIUM CHLORIDE 10 MEQ SR TABLET PO ONE (09:00)
[2020-09-10] MEDS ORDERED: VITAMIN D 1,000 INTERNATIONAL UNITS TABLET PO SCH (09:00)
[2020-09-10] MEDS ORDERED: ENOXAPARIN 40MG/0.4ML SYRINGE (J1650 PER 10MG) SC SCH (09:00)
[2020-09-10] MEDS ORDERED: PANTOPRAZOLE 20 MG TAB PO SCH (09:00)
[2020-09-10 12:00] VITALS: BP 143/79
[2020-09-10 16:00] VITALS: BP 157/85
== END 2020-09-10 16:28 | disposition left against medical advice (07) | DRG 871 ==
LOC: M ED 12:05 → M ED INP 17:36 → ENRESERV 18:28 → M PCU 19:14
PROVIDERS: ADMIT Internal Medicine; ATTEND Internal Medicine
DX: A41.9 Sepsis, unspecified organism (principal); G93.41 Metabolic encephalopathy; C78.00 Secondary malignant neoplasm of unspecified lung; C77.1 Secondary and unspecified malignant neoplasm of intrathoracic lymph nodes; C50.919 Malignant neoplasm of unspecified site of unspecified female breast; K21.9 Gastro-esophageal reflux disease without esophagitis; G43.909 Migraine, unspecified, not intractable, without status migrainosus

== ENCOUNTER → 2020-12-25 | Outpatient (CLI) | payer MEDICARE, MEDICAID ==
[~2020-12-25] MED LIST changes: +D31000TA2 PO; +DIFL200T PO; +FLUC10TA PO; +GASTROGRAFIN SOLUTION 30ML (Q9963) As Ordered ONE; +ISOVUE-370 76% 100ML VIAL As Ordered ONE; +LEVE500T5 PO
--- NOTE | 2020-12-25 18:04 | REP ---
INDICATION: BREAST CANCER. Patient reports previous cholecystectomy, appendectomy, and hysterectomy. COMPARISON: Comparison CT study December 09, 2019.. TECHNIQUE: 100 mL of intravenous Isovue 370 is administered. Helical scanning is acquired and 3 mm axial images re-formatted. Coronal and sagittal MPR images are generated. FINDINGS: The previously noted anterior mediastinal lymph node at the level of the aortic arch is a little less prominent today measuring 15 x 10 mm, previously 14 x 17 mm. There is a right hilar lymph node with short axis dimension of 9 mm which appears to be unchanged. No new adenopathy is seen. No pleural or pericardial effusion is noted. There is a triangular pleural based opacity in the right posteromedial lung gutter measuring 11 x 8 mm which is unchanged from the prior study. Stable pleural based nodule is seen in the right lower lobe. There are scattered tiny perifissural and pulmonary parenchymal nodules which are all unchanged. No new pulmonary nodule or lung mass is seen. No infiltrate is observed. No bony destructive lesion is seen. Lungs overall are hyperinflated as before. Regenerated splenic tissue is seen in the left upper quadrant. There is some cortical scarring the left kidney. No adrenal mass lesion is observed. No axillary adenopathy or supraclavicular mass is seen. IMPRESSION: No active cardiopulmonary disease seen. <Electronically signed by Wyatt Li > 12/25/20 1800
--- NOTE | 2020-12-25 18:09 | REP ---
INDICATION: BREAST CANCER. COMPARISON: Comparison study December 09, 2019.. TECHNIQUE: Helical scanning is acquired and 3 mm axial images re-formatted. Coronal and sagittal MPR images are generated. The CT contrast enhancement dose is 100 mL of intravenous Isovue 370. Oral contrast was also administered. FINDINGS: Preliminary digital direct care counselor radiograph shows clips in right upper quadrant. Bowel gas pattern is unremarkable. The liver and the spleen are homogeneous in texture. Liver is prominent but unchanged. 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 No adrenal lesion is seen. There is focal scarring in the upper pole the left kidney unchanged. No renal mass lesion is observed. No hydronephrosis is seen. There are surgical clips in the gallbladder fossa. No abnormality is noted in the pancreas. No retroperitoneal mass or adenopathy is seen. Small and large bowel loops are unremarkable in the abdomen and pelvis. No pelvic mass or adenopathy is seen. Urinary bladder is intact. The uterus is surgically absent. The appendix is surgically absent. No bony destructive lesion is appreciated. IMPRESSION: No evidence of mass or adenopathy. Findings in the abdomen are unchanged. <Electronically signed by Wyatt Li > 12/25/20 [id number]
== END ==
LOC: M RAD 14:01
PROVIDERS: ATTEND Internal Medicine Hematology & Oncology
DX: C50.919 Malignant neoplasm of unspecified site of unspecified female breast (principal)
CPT/HCPCS: 71260; 74177; Q9963; Q9967

== ENCOUNTER → 2021-06-23 | Outpatient (CLI) | payer MEDICARE, MEDICAID ==
[~2021-06-23] MED LIST changes: -GASTROGRAFIN SOLUTION 30ML (Q9963) As Ordered ONE; +POTA10CA32 PO; +VITA500C19 PO
--- NOTE | 2021-06-23 12:16 | REP ---
INDICATION: BREAST CA W/ METS LUNG. COMPARISON: None. TECHNIQUE: Imaging protocol: Computed tomography of the chest with IV contrast. Contiguous 3 mm thick axial projection images were obtained through the chest. 2D sagittal and coronal reconstructions were performed. Radiation optimization: All CT scans at this facility use at least one of these dose optimization techniques: automated exposure control; mA and/or kV adjustment per patient size (includes targeted exams where dose is matched to clinical indication); or iterative reconstruction. CONTRAST: 75 cc Isovue 370 IV FINDINGS: Lower neck: The thyroid gland is enlarged and there is a 9 mm in diameter low-density nodule in the right thyroid lobe. Smaller low-density nodules are noted in the thyroid isthmus and the left thyroid lobe. Mediastinum: There are multiple reactive mediastinal lymph nodes, the largest an anterior mediastinal node measuring 17 x 8 mm. Heart/thoracic aorta: The heart size is normal. There is no pericardial effusion. 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 Upper abdomen: Status post splenectomy. There are multiple soft tissue masses in the left upper quadrant consistent with regenerating splenic tissue. Thoracic esophagus: Normal. Chest wall and axilla: Status post right partial mastectomy. There is no axillary lymphadenopathy. There is moderate levoscoliosis of the thoracic spine. Lung parenchyma: There is peripheral airspace consolidation in the middle lobe the right lung and the inferior segment of the lingula, consistent with atelectasis or pneumonia. This was not present previously. There are 3 subpleural air cysts in the lower lobe of the right lung. IMPRESSION: 1. Interval development of airspace consolidation in the middle lobe of the right lung and upper lobe of the left lung, consistent with atelectasis or pneumonia. 2. Multiple reactive mediastinal lymph nodes, unchanged. 3. Other findings as noted, not significantly changed. <Electronically signed by Isaiah Castillo > 06/23/21 [id number]
== END ==
LOC: M RAD 10:59
PROVIDERS: ATTEND Internal Medicine Hematology & Oncology
DX: C50.111 Malignant neoplasm of central portion of right female breast (principal)
CPT/HCPCS: 71260; Q9967

== ENCOUNTER 2021-10-27 15:49 | Outpatient (CLI) | payer MEDICARE, MEDICAID ==
[~2021-10-27] VITALS: Ht 165.1 cm; Wt 72.4 kg
[~2021-10-27 15:49] MED LIST changes: +AZIT500T5 PO; -ISOVUE-370 76% 100ML VIAL As Ordered ONE; +MAGICMW SSP; +POTA10808 PO
[2021-10-27 15:55] VITALS: BP 165/83
[2021-10-27] MEDS ORDERED: KCL 20MEQ IN D5W 1000ML 1,000 ML IV ONE (15:55)
[2021-10-27 17:00] VITALS: BP 140/106
== END 2021-10-27 17:00 | disposition home or self-care (01) ==
LOC: M INFU 15:49
PROVIDERS: ATTEND Internal Medicine Hematology & Oncology
DX: C50.911 Malignant neoplasm of unspecified site of right female breast (principal); Z88.0 Allergy status to penicillin; Z88.2 Allergy status to sulfonamides; Z88.5 Allergy status to narcotic agent
CPT/HCPCS: 36415; 80053; 85025; 96365; G0463; J3480

== ENCOUNTER → 2021-12-30 | Outpatient (CLI) | payer MEDICARE, MEDICAID ==
[~2021-12-30] MED LIST changes: -D31000TA2 PO; +GASTROGRAFIN SOLUTION 30ML (Q9963) As Ordered ONE; +ISOVUE-370 76% 100ML VIAL As Ordered ONE; +VITA100093 PO
== END ==
LOC: M RAD 12:27
PROVIDERS: ATTEND Internal Medicine Hematology & Oncology
DX: C50.911 Malignant neoplasm of unspecified site of right female breast (principal); E07.9 Disorder of thyroid, unspecified; R59.0 Localized enlarged lymph nodes
CPT/HCPCS: 71260; 74177; Q9963; Q9967

== ENCOUNTER → 2022-04-11 | Outpatient (CLI) | payer MEDICARE, MEDICAID ==
[~2022-04-11] MED LIST changes: +CHOL4POW26 PO; -CHOL4POW4 PO; -GASTROGRAFIN SOLUTION 30ML (Q9963) As Ordered ONE; +GASTROGRAFIN SOLUTION 30ML (Q9963) ONE; -ISOVUE-370 76% 100ML VIAL As Ordered ONE; +ISOVUE-370 76% 100ML VIAL ONE
== END ==
LOC: M PLAIMG 10:50
PROVIDERS: ATTEND Internal Medicine Hematology & Oncology
DX: C50.911 Malignant neoplasm of unspecified site of right female breast (principal)
CPT/HCPCS: 71260; 74177; Q9963; Q9967

== ENCOUNTER → 2022-09-14 | Outpatient (CLI) | payer MEDICARE, MEDICAID ==
[~2022-09-14] MED LIST changes: +ANAS1TAB2 PO; +CIPR0.3S6 OP; +CIPROFLOXACIN; -GASTROGRAFIN SOLUTION 30ML (Q9963) ONE; +GASTROGRAFIN SOLUTION 30ML As Ordered ONE; +ISOVUE-370 76% 100ML VIAL As Ordered ONE; -ISOVUE-370 76% 100ML VIAL ONE; -POTA10CA32 PO; +POTA10CA33 PO
== END ==
LOC: M RAD 12:57
PROVIDERS: ATTEND Nurse Practitioner
DX: C50.911 Malignant neoplasm of unspecified site of right female breast (principal); Z90.49 Acquired absence of other specified parts of digestive tract; R91.8 Other nonspecific abnormal finding of lung field
CPT/HCPCS: 71260; 74177; Q9963; Q9967

== ENCOUNTER → 2024-02-22 | Outpatient (CLI) | payer MEDICARE, MEDICAID ==
[~2024-02-22] MED LIST changes: +AFIN10TA PO; +AFIN5TAB PO; +CAL-TAB4 PO; +CIPR0.3S37 OP; -CIPR0.3S6 OP; +DEXA0.5E2 PO; +EXEM25TA PO; -GASTROGRAFIN SOLUTION 30ML As Ordered ONE; -ISOVUE-370 76% 100ML VIAL As Ordered ONE; -POTA10CA33 PO; +POTA10CA70 PO; +VARE1TAB2 PO; +VARE1TAB7 PO
== END ==
LOC: M RAD 15:05
PROVIDERS: ATTEND Nurse Practitioner
DX: I83.811 Varicose veins of right lower extremity with pain (principal)